=== PATIENT | male | born 1970 | race Caucasian/White ===

== ENCOUNTER 2019-06-21 18:47 | Inpatient (IN) | payer MEDICAID ==
[2019-06-21 20:31] LABS: ABS Eosinophils 0.1 10^3/ul (0-0.6); ABS Lymphocytes 2.3 10^3/ul (1.0-4.8); ABS Monocytes 0.6 10^3/ul (0-0.8); ABS Neutrophils 4.3 10^3/ul (1.5-7.7); Eosinophil % 0.9 %; Hematocrit 45 % (42-52); Hemoglobin 15.6 g/dL (14.0-18.0); Lymphocyte % 31.4 %; Mean Corpuscular HGB Conc 35 g/dL (31-36); Mean Corpuscular Hemoglobin 31 pg (27-31); Mean Corpuscular Volume 90 fL (80-94); Mean Platelet Volume 7.2 fL (7.4-10.4); Platelet Count 237 10^3/uL (150-450); Red Blood Count 5.01 10^6 /uL (4.18-5.48); Red Cell Distribution Width 15 % (10-15); White Blood Count 7.3 10^3/uL (3.5-10.8)
[2019-06-21 20:38] LABS: Urine Appearance Turbid; Urine Bilirubin Negative (Negative); Urine Blood Negative (Negative); Urine Color Yellow; Urine Glucose Negative (Negative); Urine Ketones Negative (Negative); Urine Nitrite Negative (Negative); Urine Urobilinogen Negative (Negative)
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
[2019-06-21 20:48] LABS: Urine Bacteria Absent (Absent); Urine Red Blood Cell Absent (Absent); Urine White Blood Cell Trace(0-5/hpf) (Absent)
[2019-06-21 20:49] LABS: Acetaminophen < 15 mcg/mL; Alcohol < 10 mg/dL (<10); Salicylate < 2.50 mg/dL (<30)
[2019-06-21 20:50] LABS: ALT 28 U/L (7-52); AST 20 U/L (13-39); Albumin/Globulin Ratio 1.5 (1-3); Alkaline Phosphatase 66 U/L (34-104); Anion Gap 7 mmol/L (2-11); BUN/Creatinine Ratio 12.4 (8-20); Blood Urea Nitrogen 11 mg/dL (6-24); CO2 Carbon Dioxide 28 mmol/L (22-32); Calcium 8.8 mg/dL (8.6-10.3); Chloride 103 mmol/L (101-111); EGFR African American 111.3 (>60); Globulin 2.7 g/dL (2-4); Glucose 94 mg/dL (70-100); Potassium 3.3 mmol/L (3.5-5.0); Sodium 138 mmol/L (135-145); Total Protein 6.7 g/dL (6.4-8.9)
[2019-06-21 20:57] LABS: Urine Benzodiazepine Screen None Detected (None Detect); Urine Opiates Screen None Detected (None Detect)
[2019-06-21 21:04] LABS: TSH (Thyroid Stimulating Horm) 1.34 mcIU/mL (0.34-5.60)
[2019-06-21 21:35] LABS: HIV 4th Generation Nonreactive (Nonreactive)
--- NOTE | 2019-06-21 22:41 | ED ---
Progress - Progress Note Progress Note: 48 y/o M signed out from Dr. Eliceo Chavarria upon shift change 06/21/2019 2200 pending psychiatric evaluation and disposition. Re-Evaluation - Re-Evaluation First Eval Re-Evaluation Time: 23:20 Comment: Psychiatric analytic programmer reviewed case with Dr. Lopez. They will admit the patient. Course/Dx - Course Course Of Treatment: Psychiatric evaluation complete. The patient will be admitted. - Diagnoses Provider Diagnoses: Depressive disorder - Provider Notifications Discussed Care Of Patient With: Jim Lopez Time Discussed With Above Provider: 23:20 Instructed by Provider To: Admit As Inpatient Discharge ED - Sign-Out/Discharge Documenting (check all that apply): Patient Departure, Receiving Sign-Out Receiving patient FROM: Eliceo Chavarria - Discharge Plan Condition: Improved Disposition: [facility]ATRIC FAC[facility] - Billing Disposition and Condition Condition: IMPROVED Disposition: Psychiatric Facility [facility] - Attestation Statements Document Initiated by Scribe: Yes Documenting Scribe: Shelly Silva Provider For Whom Stacy is Documenting (Include Credential): Barry Gar MD Scribe Attestation: Shelly Felipe, scribed for Barry Gar MD on 06/26/19 at 0603. Scribe Documentation Reviewed: Yes Provider Attestation: The documentation as recorded by the Shelly yang accurately reflects the service I personally performed and the decisions made by Barry ryan MD Status of Scribe Document: Viewed
[2019-06-21 23:55] LABS: Amylase 27 U/L (29-103)
[2019-06-22] MEDS ORDERED: Al Hydrox/Mg Hydrox/Simet LIQ* 30 ML UDC PO PRN (00:25)
[2019-06-22] MEDS ORDERED: Acetaminophen TAB* 325 MG PO PRN (00:25)
[2019-06-22] MEDS ORDERED: Thiamine IV* 100 MG IM X 1 ON ADMISSION IM ONE (01:00)
[2019-06-22] MEDS ORDERED: LORazepam PO 0-6 for WAM protocol PO SCH (01:00)
[2019-06-22] MEDS ORDERED: buPROPion TAB* 100 MG PO SCH (09:00)
[2019-06-22] MEDS ORDERED: Influenza VAC *QUAD* 2019-20* 0.5 ML SYRINGE IM ONE (09:00)
[2019-06-22] MEDS: Folic Acid TAB* 1 MG DAILY PO SCH (09:47)
[2019-06-22] MEDS: Nicotine PATCH 21 MG/24 HR* PATCH TRANSDERM SCH (09:47)
[2019-06-22] MEDS: Vitamin THERAPEUTIC TAB PO SCH (09:47)
[2019-06-22] MEDS ORDERED: Nicotine* 4MG (FRUIT FLAVOR) GUM PO PRN (10:46)
[2019-06-22] MEDS ORDERED: traZODone TAB* 100 MG PO PRN (10:46)
[2019-06-22] MEDS: BuPROPion XL* 300 MG TAB.XL PO SCH (11:22)
[2019-06-22 14:42] LABS: Urine Protein Negative (Negative)
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
[2019-06-23] MEDS: Nicotine Patch Removal NOTE PATCH OFF SCH
[2019-06-23 08:33] LABS: HDL Cholesterol 45.1 mg/dL
[2019-06-23] MEDS ORDERED: Tetanus-Diptheria Toxoids* 0.5 ML SYRINGE IM ONE (09:00)
[2019-06-23] MEDS: Thiamine TAB* 100 MG TAB DAILY (@ T+1) PO SCH (10:20)
[2019-06-23] MEDS: Vitamin THERAPEUTIC TAB PO SCH (10:20)
[2019-06-23] MEDS: Folic Acid TAB* 1 MG DAILY PO SCH (10:21)
[2019-06-23] MEDS: BuPROPion XL* 300 MG TAB.XL PO SCH ×2 (10:22→10:23)
[2019-06-23] MEDS: Nicotine PATCH 21 MG/24 HR* PATCH TRANSDERM SCH (10:24)
[2019-06-23 13:48] VITALS: BP 143/93
[2019-06-23] MEDS ORDERED: chlorproMAZINE TAB* 50 MG PO PRN (17:49)
[2019-06-24] MEDS: Thiamine TAB* 100 MG TAB DAILY (@ T+1) PO SCH (10:18)
[2019-06-24] MEDS: BuPROPion XL* 300 MG TAB.XL PO SCH (10:18)
[2019-06-24] MEDS: Nicotine PATCH 21 MG/24 HR* PATCH TRANSDERM SCH (10:18)
[2019-06-24] MEDS: Folic Acid TAB* 1 MG DAILY PO SCH (10:18)
[2019-06-24] MEDS: Vitamin THERAPEUTIC TAB PO SCH (10:18)
--- NOTE | 2019-06-24 16:55 | PN ---
Subjective - Subjective Date of Service: 06/24/19 Service Type: 93606 Hosp care 25 min moderate complexity Subjective: Carolann has been agitated due to being locked up on the unit . Demanded to be discharged. Today refused meds as it wasn't helping. Tense and constantly by the nurs' station on the phone. Denies SI, HI or psychosis. Objective - General Observations Appearance: Well Groomed Stature: WNL, Overweight Posture: WNL Eye Contact: Average Behavior/Activity: Accelerated, Agitated - Interaction Observations Attitude Towards Examiner: Demanding Stated Mood: Expansive, Irritable Affect: Full Speech Pattern/Tone: Clear, Normal Volume Thought Process: Coherent, Goal Directed Perception: WNL Hallucination Type: Denies Delusion Type: Denies - Cognitive Function Orientation: A&O x 4 Level of Consciousness: Awake, Alert, Appropriate Cognition: WNL Estimated Intelligence: Normal Insight: Mostly Blames Others for Problems Judgment Within Normal Limits: No Ability to Make Reasonable Decisions: Moderately Impaired - Medication Compliance Cooperative with Inpatient Medication Regimen: No - Group Participation Participates in Group Activities: No Assessment - Assessment Merits Inpatient Hospitalization: For Stabilization, Pending Safe DC Plan Plan - Plan Treatment Plan: Name: CAROLANN BUCHANAN Birthdate: 1970 [id number] Continued Medication Management: Continue Outpt Medication Medications: Current Medications Acetaminophen (Tylenol Tab*) 650 mg PO Q4H PRN PRN Reason: PAIN or TEMP > 101 F Al Hydrox/Mg Hydrox/Simethicone (Maalox Plus*) 30 ml PO Q4H PRN PRN Reason: INDIGESTION Bupropion HCl (Bupropion Xl*) 300 mg PO DAILY [facility] Last Admin: 06/24/19 10:18 Dose: Not Given Chlorpromazine HCl (Thorazine Tab*) 50 mg PO Q4H PRN PRN Reason: AGITATION Folic Acid (Folvite Tab*) 1 mg PO DAILY [facility] Last Admin: 06/24/19 10:18 Dose: Not Given Multivitamins (Theragran Tab*) 1 tab PO DAILY [facility] Last Admin: 06/24/19 10:18 Dose: Not Given Nicotine (Nicotine Patch 21 Mg/24 Hr*) 1 patch TRANSDERM DAILY [facility] Last Admin: 06/24/19 10:18 Dose: Not Given Nicotine Polacrilex (Nicotine Gum*) 4 mg PO Q2H PRN PRN Reason: CRAVING Pharmacy Profile Note (Nicotine Patch Removal Note*) 1 note PATCH OFF 2100 [facility] Last Admin: 06/24/19 00:00 Dose: Not Given Thiamine HCl (Vitamin B-1 Tab*) 100 mg PO DAILY [facility] Last Admin: 06/24/19 10:18 Dose: Not Given Trazodone HCl (Desyrel Tab*) 100 mg PO BEDTIME PRN PRN Reason: INSOMNIA - Discharge Plan Discharge Plan: Drug/Alcohol Rehab
[2019-06-24] MEDS: Nicotine Patch Removal NOTE PATCH OFF SCH ×2 (21:55)
[2019-06-25] MEDS: Folic Acid TAB* 1 MG DAILY PO SCH (07:49)
[2019-06-25] MEDS: BuPROPion XL* 300 MG TAB.XL PO SCH (07:49)
[2019-06-25] MEDS: Vitamin THERAPEUTIC TAB PO SCH (07:49)
[2019-06-25] MEDS: Nicotine PATCH 21 MG/24 HR* PATCH TRANSDERM SCH (07:49)
[2019-06-25] MEDS: Thiamine TAB* 100 MG TAB DAILY (@ T+1) PO SCH (07:49)
--- NOTE | 2019-06-26 00:08 | DS ---
CC: [facility] [place] * DISCHARGE SUMMARY: DATE OF ADMISSION: 06/21/19 DATE OF DISCHARGE: 06/25/19 SUPERVISING PSYCHIATRIST: Dr. Jim Lopez.* (DICTATED BY KRISTOPHER SELLERS NP) DISCHARGE DIAGNOSES: 1. Amphetamine-induced mood disorder. 2. Unspecified depressive disorder. 3. Amphetamine-abuse disorder. 4. Cocaine use disorder. 5. Cannabis use disorder. CONDITION AT THE TIME OF DISCHARGE: Improved. The patient denies thoughts of suicide or self harm. He reports motivation to continue with treatment at [facility] [place] and to start treatment at [facility]. He states that sober and healthy supports have reached out to him and told him that they are here for him. He states that he has always felt like nobody cares, so this was surprising to him. He is starting to gain some insight he thinks. He said "I think most of my issues have to do with drugs" and he said that looking back, he has never had thoughts of harming himself when he is not engaging in substance use. The patient seems motivated to remain out of detention and he identifies that staying clean and sober will help his chances with this. We reviewed his behavior over the weekend when he was frustrated and upset. He states that being locked up was reminiscent of being incarcerated. He states he took some time to his room and calmed down. He was given positive feedback about coping with emotions without substances. The patient submitted a 72 hour notice requesting to be discharged. He reports he is returning to the [facility] and intends to participate in community 12-step meetings. The patient is discharged to home. MENTAL STATUS EXAM: The patient is a 48-year-old white male, who appears slightly older than stated age. He is casually dressed, well groomed, and sitting in a chair in the milieu upon presentation. He is pleasant upon approach and participates in conversation. He is alert and oriented x3. Eye contact is good. Speech is soft, articulate, and spontaneous. Concentration good. Memory 3/3. Mood is euthymic with bright affect. No abnormal psychomotor activity noted. Thought process is logical, goal directed and coherent. Thought content is negative for suicidal ideation or passive wish. He denies HI or . He denies auditory or visual hallucinations. There are no perceptual disturbances noted. Insight and judgment are fair and that he was willing to be hospitalized on a voluntary basis. He appears to have an average intellect and his fund of knowledge is adequate. INSTRUCTIONS GIVEN TO PATIENT: A. Medications: Bupropion XL 300 mg p.o. daily. B. Diet: Regular. C. Activity: Ambulation as tolerated. Tobacco cessation was declined by the patient. There are no pending labs or diagnostic studies. D. Followup care: The patient will return to [facility] and has appointment set with his counselor, Cassia and psychiatrist, Dr. Ferris. The patient declined offer of medication for substance use disorders. HOSPITAL COURSE: Part A: Reason for admission: The patient presented to the emergency department with suicidal ideation. Chief complaint: "I have been thinking dumb thoughts...of harming myself." HPI: Giancarlo is a 48-year-old white male who [facility] and presented to the emergency department self-referred due to thoughts of suicide. Apparently, he had met with his textile technical officer, who suggested that he come to the hospital for evaluation. The patient reports "I just want to get it over with" and reports hopelessness, helplessness along with guilt and shame. He states that he is having difficulty maintaining abstinence due to living [facility] the penitentiary and spending time with people who also use substances. He reports his drug of choice is methamphetamine and he has been on parole since 2013 due to manufacturing. He states that he has been using marijuana, K2 , methamphetamine, and cocaine fairly consistently since February of last year. He reports periods of a day to a week long of abstinence. With motivational interviewing techniques, he is able to identify his use as problematic. He reports that he has been trying to get in to see a therapist at [facility]. He is currently a client of the [facility]. He states he has been inconsistently attending due to using and just calling in "sick." He reports his sleeping is poor even without substance use. He reports frustration with not being able to find housing with his limited income and having to spend down from DSS. The patient is tearful and remorseful. He is cooperative with interview and gives lots of details when asked. He has difficulty identifying what leads to relapse in regards to mental health processes. To him, it seems to be impulsive and related to many people who also use in the homeless community. The patient reports history of suicidal ideation and self-injurious behavior via cutting. He denies history of perpetrator behaviors in regards to domestic violence or sexual assault. Part B: Psychiatric treatment rendered: The patient was admitted to the adult behavioral services unit on a voluntary status. His code status was full. He was placed on 15 minute checks for safety. At admission, he was placed on WAM protocol. I discontinued this as he denies exorbitant alcohol use or need for detoxification. We continued bupropion XL at 300 mg. The patient was afforded trazodone as needed for sleep. He was encouraged to participate in supportive, milieu, individual sessions with staff and psychoeducational groups. He reported a recent dog bite and was given a tetanus injection. We obtained an x- ray of his left shoulder due to recent injury, but this was unremarkable. The patient did fairly well on the unit. On Tuesday, the day before discharge, he was agitated as stated above. He demanded to be discharged and refused any p.r.n. medications. This morning on the day of discharge, he had submitted a 72 hour notice. He was pleasant and cooperative. As stated above, he cited motivation to remain in recovery. We hope that Giancarlo participates and continues to acknowledge the support that he has currently. KRISTOPHER SELLERS NP [id number]/CPS #: [id number] TIFFANIE
== END 2019-06-25 15:45 | disposition home or self-care (01) | DRG 774 ==
LOC: ED 18:47 → BSU 23:00
PROVIDERS: ADMIT Psychiatry & Neurology Psychiatry; ATTEND Psychiatry & Neurology Psychiatry
PROC: HZ2ZZZZ Detoxification Services for Substance Abuse Treatment (ICD-10-PCS; principal; 2019-06-21)
DX: F15.14 Other stimulant abuse with stimulant-induced mood disorder (principal); R45.851 Suicidal ideations; F14.90 Cocaine use, unspecified, uncomplicated; F12.90 Cannabis use, unspecified, uncomplicated; F32.9 Major depressive disorder, single episode, unspecified; F17.210 Nicotine dependence, cigarettes, uncomplicated; Z79.899 Other long term (current) drug therapy
CPT/HCPCS: 36415; 80053; 80061; 80307; 80320; 80329; 81003; 81015; 82150; 82248; 83036; 83690; 84443; 85025; 87086; 87389; 90686; 99222; 99232; 99238; 99284; A9270-GY; G0480; J3411